=== PATIENT | male | born 1995 | race Caucasian/White ===

== ENCOUNTER 2016-12-27 15:00 | Emergency (ER) | payer SELFPAY ==
[2016-12-27 15:19] VITALS: BP 126/74; PULSE 119; TEMP 99.6; BMI 24.0
--- NOTE | 2016-12-27 15:50 | PDOC ---
History of Present Illness - General Chief Complaint: Cold Symptoms Stated Complaint: COLD SYMPTOMS Time Seen by Provider: 12/27/16 15:28 History Source: Patient Exam Limitations: No Limitations - History of Present Illness Initial Comments: 12/27/16 15:45 21 yr male with c/o left ear clogged. Pt recently had URI last week. no medical history. Severity: reports: mild Past History - Past Medical History Allergies/Adverse Reactions: Allergies Allergy/AdvReac Type Severity Reaction Status Date / Time No Known Allergies Allergy Verified 12/27/16 15:16 Home Medications: Ambulatory Orders Doxycycline Monohydrate [Adoxa] 100 mg PO BID #20 tablet 03/20/15 Oxycodone HCl/Acetaminophen [Percocet 5/325 -] 1 tab PO Q6H #10 tablet 03/20/15 Oxycodone HCl/Acetaminophen [Percocet 5-325 mg Tablet -] 1 - 2 tab PO Q4H PRN # 20 tablet 03/22/15 - Psycho/Social/Smoking Cessation Hx Anxiety: No Suicidal Ideation: No Smoking History: Former smoker Have you smoked in the past 12 months: Yes If you are a former smoker, when did you quit?: 2106 Information on smoking cessation initiated: No Hx Alcohol Use: No Drug/Substance Use Hx: No Substance Use Type: None Review of Systems - Review of Systems Able to Perform ROS?: Yes Is the patient limited Danish proficient: No Constitutional: No: Symptoms Reported HEENTM: Yes: See HPI *Physical Exam - Vital Signs Last Vital Signs Temp Pulse Resp BP Pulse Ox 99.6 F 119 H 18 126/74 95 12/27/16 15:16 12/27/16 15:16 12/27/16 15:16 12/27/16 15:16 12/27/16 15:16 - Physical Exam Comments: 12/27/16 15:51 General Appearance: Yes: Nourished, Appropriately Dressed HEENT: positive: EOMI, BUZZ, Nasal Congestion, Other (left ear with cerumen impaction ) Neck: positive: Supple Respiratory/Chest: positive: Lungs Clear, Normal Breath Sounds Cardiovascular: positive: Regular Rhythm, Regular Rate Musculoskeletal: positive: Normal Inspection Extremity: positive: Normal Capillary Refill, Normal Inspection, Normal Range of Motion Integumentary: positive: Normal Color, Dry, Warm Neurologic: positive: Fully Oriented, Alert, Normal Mood/Affect, Normal Response , Motor Strength 01/03 Medical Decision Making - Medical Decision Making 12/27/16 15:52 cc: clogged ear cerumen impaction s/p cleaning ears with Qtips afebrile, nasal congestion refer to ENT *DC/Admit/Observation/Transfer Diagnosis at time of Disposition: Impacted cerumen, left ear - Referrals Referrals: Naren Cano MD [Staff Physician] - - Patient Instructions Additional Instructions: use the drops as directed get Debrox wax removal drops over the counter any [facility] follow with the ENT no Qtips in the ear - Post Discharge Activity Work/School Note: Back to Work
== END 2016-12-27 15:53 | disposition home or self-care (01) ==
LOC: JERFT 15:00
DX: H61.22 Impacted cerumen, left ear (principal); Z87.891 Personal history of nicotine dependence
CPT/HCPCS: 99281-25

== ENCOUNTER → 2017-01-03 | Emergency (ER) | payer SELFPAY ==
[2017-01-03 21:43] VITALS: BP 111/72; PULSE 86; TEMP 97.7; BMI 23.3
--- NOTE | 2017-01-03 23:16 | PDOC ---
History of Present Illness - General Chief Complaint: Ear Problem Stated Complaint: EAR PROBLEM,NOSE BLEED Time Seen by Provider: 01/03/17 22:39 History Source: Patient Exam Limitations: No Limitations - History of Present Illness Initial Comments: 01/03/17 23:16 21-year-old male presents to the emergency department complaining of difficulty hearing to the left ear times approximately one week. Patient was seen in the emergency department 3 days ago for cerumen impaction. Patient has been using Debrox for approximately one week without much success. Patient states he frequently uses a Q-tip to clean out his left ear. Patient denies any ear trauma or acute lower noise. Patient has not seen an ENT since being seen in the emergency department 3 days ago. Patient denies any fever, chills, nausea/ vomiting, injuries/trauma. Timing/Duration: 1 week Associated Symptoms: reports: denies symptoms Past History - Travel Traveled outside of the country in the last 30 days: No Close contact w/someone who was outside of country & ill: No - Past Medical History Allergies/Adverse Reactions: Allergies Allergy/AdvReac Type Severity Reaction Status Date / Time No Known Allergies Allergy Verified 12/27/16 15:16 Home Medications: Ambulatory Orders Doxycycline Monohydrate [Adoxa] 100 mg PO BID #20 tablet 03/20/15 Oxycodone HCl/Acetaminophen [Percocet 5/325 -] 1 tab PO Q6H #10 tablet 03/20/15 Oxycodone HCl/Acetaminophen [Percocet 5-325 mg Tablet -] 1 - 2 tab PO Q4H PRN # 20 tablet 03/22/15 Other medical history: Pt denies - Psycho/Social/Smoking Cessation Hx Anxiety: No Suicidal Ideation: No Smoking History: Former smoker Have you smoked in the past 12 months: Yes Number of Cigarettes Smoked Daily: 2 If you are a former smoker, when did you quit?: 2106 Information on smoking cessation initiated: No Hx Alcohol Use: No Drug/Substance Use Hx: No Substance Use Type: None Review of Systems - Review of Systems HEENTM: Yes: Other (left ear diff hearing). No: Ear Pain, Ear Discharge *Physical Exam - Vital Signs Last Vital Signs Temp Pulse Resp BP Pulse Ox 97.7 F 86 20 111/72 97 01/03/17 21:38 01/03/17 21:38 01/03/17 21:38 01/03/17 21:38 01/03/17 21:38 - Physical Exam Comments: 01/03/17 23:18 GENERAL: Well developed, well nourished. Awake and alert. No acute distress. HEENT: +left ear min hearing when rubbing fingers together Negative vestibular schwannoma TM is intact, mild central tympano-sclerosis, negative pain on auricular movement Normocephalic, atraumatic. PERRLA, EOMI. No conjunctival pallor. Sclera are non- icteric. Moist mucous membranes. Oropharynx is clear. NECK: Supple. Full ROM. No JVD. Carotid pulses 2+ and symmetric, without bruits. No thyromegaly. No lymphadenopathy. SKIN: Warm and dry. Normal capillary refill. No rashes. No jaundice. NEUROLOGICAL: Alert, awake, appropriate. Cranial nerves 2-12 intact. No deficits to light touch and temperature in face, upper extremities and lower extremities. No motor deficits in the in face, upper extremities and lower extremities. Normoreflexic in the upper and lower extremities. Normal speech. Toes are down- going bilaterally. Gait is normal without ataxia. PSYCHIATRIC: Cooperative. Good eye contact. Appropriate mood and affect. *DC/Admit/Observation/Transfer Diagnosis at time of Disposition: Hearing difficulty of left ear - Discharge Dispostion Disposition: HOME Condition at time of disposition: Stable - Referrals Referrals: Naren Cano MD [Staff Physician] - - Patient Instructions Additional Instructions: It Is important that you follow up with the ENT physician: Dr. Cano. [phone]. Discontinue using Debrox: There is no cerumen/earwax in the left ear. Return back to the emergency department for severe/persistent or worsening symptoms.
== END | disposition home or self-care (01) ==
LOC: JERFT 21:01 → JER 21:01
DX: H91.8X2 Other specified hearing loss, left ear (principal)
CPT/HCPCS: 99281-25

== ENCOUNTER 2017-11-28 18:37 | Emergency (ER) | payer SELFPAY ==
[2017-11-28] MEDS ORDERED: ACETAMINOPHEN 325 MG TABLET (FP) PO ONE (18:44)
[2017-11-28] MEDS ORDERED: DIPHTH,PERTUSS(ACELL),TET 0.5 ML DISP.SYRIN IM ONE (18:45)
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
[2017-11-28 18:46] VITALS: BP 136/71; PULSE 100; TEMP 98.3; BMI 23.3
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
== END 2017-11-28 21:55 | disposition home or self-care (01) ==
LOC: JERFT 18:37
PROC: 0HQ0XZZ Repair Scalp Skin, External Approach (ICD-10-PCS; principal; 2017-11-28)
PROC: 3E0234Z Introduction of Serum, Toxoid and Vaccine into Muscle, Percutaneous Approach (ICD-10-PCS; 2017-11-28)
DX: S01.01XA Laceration without foreign body of scalp, initial encounter (principal); S61.212A Laceration without foreign body of right middle finger without damage to nail, initial encounter; Y00.XXXA Assault by blunt object, initial encounter; Y93.89 Activity, other specified; Y92.89 Other specified places as the place of occurrence of the external cause; Y99.9 Unspecified external cause status
CPT/HCPCS: 70450-TC; 73130-TC-RT-FY; 90715; 99281-25

== ENCOUNTER 2017-12-06 08:49 | Emergency (ER) | payer SELFPAY ==
[2017-12-06 09:12] VITALS: BP 111/65; PULSE 72; TEMP 97.7; BMI 25.6
--- NOTE | 2017-12-06 09:30 | PDOC ---
Suture Removal/Wound Check HPI - History of Present Illness Chief Complaint: Suture/Staple Removal(Here) Stated Complaint: REMOVE SUTURE Time Seen by Provider: 12/06/17 09:28 History Source: Yes: Patient Exam Limitations: Yes: No Limitations Treated at: [facility] ED - Previous ED Treatment Type of procedure performed on last visit: Yes: Laceration Repair Past History - Travel Traveled outside of the country in the last 30 days: No Close contact w/someone who was outside of country & ill: No - Past Medical History Allergies/Adverse Reactions: Allergies Allergy/AdvReac Type Severity Reaction Status Date / Time No Known Allergies Allergy Verified 12/06/17 09:09 COPD: No Other medical history: DENIES. - Suicide/Smoking/Psychosocial Hx Smoking History: Current every day smoker Have you smoked in the past 12 months: Yes Number of Cigarettes Smoked Daily: 2 If you are a former smoker, when did you quit?: 2106 Information on smoking cessation initiated: Yes 'Breaking Loose' booklet given: 12/06/17 Hx Alcohol Use: No Drug/Substance Use Hx: No Substance Use Type: None Suture Removal/Wound Check PE - Physical Exam Laceration/Wound Check Symptoms: reports: None Current Severity Level: None Maximum Severity Level: None *Review of Systems - Review of Systems Able to Perform ROS?: Yes Constitutional: Yes: See HPI. No: Symptoms Reported, Fever, Malaise HEENTM: Yes: Other (mild tender at staple line=- has not washed wound since incident and has scabs ). No: Symptoms Reported Respiratory: No: Symptoms reported All Other Systems: Reviewed and Negative Medical Decision Making - Medical Decision Making 12/06/17 09:29 7 sanjeev remnoved from scalp wiht no incident. *DC/Admit/Observation/Transfer Diagnosis at time of Disposition: Encounter for staple removal - Discharge Dispostion Disposition: HOME Condition at time of disposition: Stable Admit: No - Referrals - Patient Instructions Printed Discharge Instructions: DI for Suture Removal - Post Discharge Activity
== END 2017-12-06 09:30 | disposition home or self-care (01) ==
LOC: JERFT 08:49
DX: Z48.02 Encounter for removal of sutures (principal)
CPT/HCPCS: 99281-25